=== PATIENT | female | born 1975 | race Caucasian/White ===

== ENCOUNTER → 2018-09-25 09:24 | Outpatient (CLI) | payer OTHER, SELFPAY ==
[2018-09-25 10:07] LABS: Add Manual Diff / Slide Review NO; Basophils Absolute Auto 100 /uL (0-100); Basophils Percent Auto 0.7 % (0-2); Eosinophils Absolute Auto 300 /uL (0-450); Eosinophils Percent Auto 3.7 % (2-4); Hematocrit 41.3 % (36-46); Hemoglobin 13.4 g/dL (12.0-16.0); Lymphocytes Absolute Auto 1900 /uL (1100-4500); Lymphocytes Percent Auto 25.3 % (25-40); Mean Corpuscular HGB Conc 32.6 % (30-36); Mean Corpuscular Hemoglobin 29.7 PG (26-34); Mean Corpuscular Volume 91.4 fL (80-100); Monocytes Absolute Auto 900 /uL (0-900); Monocytes Percent Auto 12.2 % (3-14); Neutrophils Absolute Auto 4300 /uL (1500-7000); Neutrophils Percent Auto 58.1 % (50-75); Platelet Count 368 X10^3/uL (150-400); Red Blood Cell Count 4.52 X10^6/uL (4.0-5.2); Red Cell Distribution Width 14.9 % (11.6-14.8); White Blood Cell Count 7.5 X10^3/uL (4.5-11.0)
[2018-09-25 10:10] LABS: Glucose 70 mg/dL (70-100); Hemoglobin A1C% w Est Avg Glu 5.2 % (4.0-6.0)
[2018-09-25 10:50] LABS: Hepatitis B Surface Antigen NEGATIVE s/c (NEGATIVE); Rubella Antibody IgG 21.5 IU/mL (>15)
[2018-09-25 11:01] LABS: Appearance Urine UA CLEAR; Bilirubin Urine UA NEGATIVE (NEGATIVE); Color Urine UA YELLOW; Glucose Urine UA NEGATIVE (Negative); Ketones Urine UA NEGATIVE (NEGATIVE); Leukocyte Esterase Urine UA NEGATIVE (NEGATIVE); Nitrite Urine UA NEGATIVE (Negative); Occult Blood Urine UA NEGATIVE (Negative); Protein Urine UA NEGATIVE (Negative); Specific Gravity Urine UA 1.025 (1.000-1.035); Urobilinogen Urine UA 0.2 E.U./dL (0.2)
[2018-09-25 11:07] LABS: HIV 1 and 2 Antibody NEGATIVE (NEGATIVE); Hep C Virus Ab w/Reflex Quant NEGATIVE s/c (NEGATIVE)
[2018-09-25 13:02] LABS: Blood Urea Nitrogen 13 mg/dL (7-17); Creatine Kinase 53 U/L (30-135); Uric Acid 2.7 mg/dL (2.5-6.2)
[2018-09-27 12:26] LABS: RPR Screen Nonreactive (Nonreactive)
== END ==
PROVIDERS: Family Provider Family Medicine Geriatric Medicine; PCP Family Medicine Geriatric Medicine
DX: Z34.01 Encounter for supervision of normal first pregnancy, first trimester (principal); O16.9 Unspecified maternal hypertension, unspecified trimester
CPT/HCPCS: 36415; 80055; 81003; 82550; 82947; 83036; 84520; 84550; 86703; 86787; 86803; 86850; 86900; 86901; 87086

== ENCOUNTER → 2018-10-27 12:54 | Outpatient (CLI) | payer OTHER, SELFPAY ==
[2018-11-02 14:51] LABS: Sequential Screen 1st Trimeste FINAL RESULT PENDING
[2018-11-06 13:15] LABS: Informaseq SEE SEPERATE REPORT
== END ==
PROVIDERS: Family Provider Family Medicine Geriatric Medicine; PCP Family Medicine Geriatric Medicine
DX: O09.519 Supervision of elderly primigravida, unspecified trimester (principal); Z3A.13 13 weeks gestation of pregnancy
CPT/HCPCS: 36415; 81507; 84163; 84702

== ENCOUNTER → 2018-11-24 09:47 | Outpatient (CLI) | payer OTHER, SELFPAY ==
[2018-11-29 14:04] LABS: Sequential Screen 2nd Trimeste SCREEN NEGATIVE
== END ==
DX: O09.519 Supervision of elderly primigravida, unspecified trimester (principal)
CPT/HCPCS: 82105; 82677; 84163; 84702; 86336

== ENCOUNTER → 2019-03-29 10:46 | Outpatient (CLI) | payer OTHER, SELFPAY ==
[2019-03-29 11:16] LABS: Add Manual Diff / Slide Review NO; Basophils Absolute Auto 0 /uL (0-100); Basophils Percent Auto 0.4 % (0-2); Eosinophils Absolute Auto 200 /uL (0-450); Eosinophils Percent Auto 1.6 % (2-4); Lymphocytes Absolute Auto 2200 /uL (1100-4500); Lymphocytes Percent Auto 18.7 % (25-40); Mean Corpuscular HGB Conc 33.3 % (30-36); Mean Corpuscular Hemoglobin 30.7 PG (26-34); Mean Corpuscular Volume 92.4 fL (80-100); Monocytes Absolute Auto 1200 /uL (0-900); Monocytes Percent Auto 10.2 % (3-14); Neutrophils Absolute Auto 8200 /uL (1500-7000); Neutrophils Percent Auto 69.1 % (50-75); Platelet Count 295 X10^3/uL (150-400); Red Blood Cell Count 4.22 X10^6/uL (4.0-5.2); Red Cell Distribution Width 13.6 % (11.6-14.8); White Blood Cell Count 11.8 X10^3/uL (4.5-11.0)
[2019-03-29 11:37] LABS: Alanine Aminotransferase 25 IU/L (9-52); Aspartate Aminotransferase 20 IU/L (14-36); Blood Urea Nitrogen 9 mg/dL (7-17); Estimated Glomerular Filt Rate > 60.0 mL/min (>60); Uric Acid 3.2 mg/dL (2.5-6.2)
[2019-03-30 13:13] LABS: Strep Grp B PCR NEG for Grp B Strep
== END ==
PROVIDERS: PCP Family Medicine Geriatric Medicine
DX: O16.9 Unspecified maternal hypertension, unspecified trimester (principal); Z3A.35 35 weeks gestation of pregnancy
CPT/HCPCS: 36415; 82565; 84450; 84460; 84520; 84550; 85025; 87653

== ENCOUNTER 2019-04-12 11:04 | Outpatient (CLI) | payer OTHER, SELFPAY | END 2019-04-12 11:58 | disposition home or self-care (01) | LOC: LABOR 11:58 → OB 04-16 12:27 | PROVIDERS: PCP Family Medicine Geriatric Medicine | DX: O13.3 Gestational [pregnancy-induced] hypertension without significant proteinuria, third trimester (principal); Z3A.37 37 weeks gestation of pregnancy | CPT/HCPCS: 59025; G0378; G0379 ==

== ENCOUNTER → 2019-04-20 12:17 | Outpatient (CLI) | payer OTHER, SELFPAY ==
[2019-04-20 13:14] LABS: Add Manual Diff / Slide Review NO; Basophils Absolute Auto 0 /uL (0-100); Basophils Percent Auto 0.3 % (0-2); Eosinophils Absolute Auto 200 /uL (0-450); Eosinophils Percent Auto 1.8 % (2-4); Hematocrit 40.3 % (36-46); Hemoglobin 13.4 g/dL (12.0-16.0); Lymphocytes Absolute Auto 2000 /uL (1100-4500); Lymphocytes Percent Auto 20.4 % (25-40); Mean Corpuscular HGB Conc 33.2 % (30-36); Mean Corpuscular Hemoglobin 31.1 PG (26-34); Mean Corpuscular Volume 93.7 fL (80-100); Monocytes Absolute Auto 1000 /uL (0-900); Monocytes Percent Auto 10.4 % (3-14); Neutrophils Absolute Auto 6500 /uL (1500-7000); Neutrophils Percent Auto 67.1 % (50-75); Platelet Count 277 X10^3/uL (150-400); Red Cell Distribution Width 14.1 % (11.6-14.8); White Blood Cell Count 9.7 X10^3/uL (4.5-11.0)
[2019-04-20 13:27] LABS: Aspartate Aminotransferase 18 IU/L (14-36); Blood Urea Nitrogen 9 mg/dL (7-17); Estimated Glomerular Filt Rate > 60.0 mL/min (>60); Uric Acid 3.9 mg/dL (2.5-6.2)
== END ==
LOC: LAB 12:39 → OB 04-24 09:36
PROVIDERS: PCP Family Medicine Geriatric Medicine
DX: O13.3 Gestational [pregnancy-induced] hypertension without significant proteinuria, third trimester (principal); Z3A.38 38 weeks gestation of pregnancy
CPT/HCPCS: 36415; 59025; 84450; 84550; 85025; G0378

== ENCOUNTER 2019-04-26 10:57 | Outpatient (CLI) | payer OTHER, SELFPAY | END 2019-04-26 11:45 | disposition home or self-care (01) | LOC: LABOR 11:44 → OB 04-27 12:44 | PROVIDERS: PCP Family Medicine Geriatric Medicine | DX: O13.3 Gestational [pregnancy-induced] hypertension without significant proteinuria, third trimester (principal); Z3A.39 39 weeks gestation of pregnancy | CPT/HCPCS: 59025; G0378; G0379 ==

== ENCOUNTER 2019-05-01 17:50 | Observation (INO) | payer OTHER, SELFPAY ==
[2019-05-01] MEDS: LACTATED RINGERS 1,000 ML 100 ML IV (20:00)
[2019-05-01] MEDS: miSOPROStol 25 MCG TABLET VAG (20:08)
[2019-05-01 20:23] LABS: Add Manual Diff / Slide Review NO; Basophils Absolute Auto 100 /uL (0-100); Basophils Percent Auto 0.4 % (0-2); Eosinophils Absolute Auto 200 /uL (0-450); Eosinophils Percent Auto 1.6 % (2-4); Hematocrit 38.9 % (36-46); Hemoglobin 12.9 g/dL (12.0-16.0); Lymphocytes Absolute Auto 2900 /uL (1100-4500); Lymphocytes Percent Auto 21.9 % (25-40); Mean Corpuscular HGB Conc 33.2 % (30-36); Mean Corpuscular Hemoglobin 31.4 PG (26-34); Mean Corpuscular Volume 94.5 fL (80-100); Monocytes Absolute Auto 1600 /uL (0-900); Monocytes Percent Auto 11.8 % (3-14); Neutrophils Absolute Auto 8500 /uL (1500-7000); Neutrophils Percent Auto 64.3 % (50-75); Platelet Count 266 X10^3/uL (150-400); Red Blood Cell Count 4.12 X10^6/uL (4.0-5.2); Red Cell Distribution Width 14.4 % (11.6-14.8); White Blood Cell Count 13.2 X10^3/uL (4.5-11.0)
[2019-05-01 23:08] VITALS: BP 124/76
[2019-05-02] MEDS: miSOPROStol 25 MCG TABLET VAG (00:08)
[2019-05-02] MEDS: OXYTOCIN PREMIX 30 UNIT/500 ML PLAST..BAG IV (06:51)
--- NOTE | 2019-05-02 08:02 | DI.US.S_ITS ---
PROCEDURE: US OB LIMITED INDICATIONS: EFW; S/D RATIO; BPP OUTSIDE/PRIOR DATING DATA: Last menstrual period (LMP): 07/24/18. LMP-based estimated date of delivery (RONALD): 04/30/19. First dating scan (date and location): 09/25/18, Dr. Shea office. Estimated date of delivery (RONALD) from first dating scan: 04/28/19. TECHNIQUE: Real-time scanning was performed of the fetus, with image documentation and biometric measurements. Endovaginal scanning: Not performed COMPARISON: None. FINDINGS: General: A single living intrauterine gestation is present. Presentation: Vertex. Placenta: Placental position is posterior, without previa. Lower placental edge 2 cm or less from internal cervical os qualifies as low lying placenta. Amniotic fluid index: 7.3 cm cm, normal range is 5-24 cm. heart rate: 149 beats per minute. Maternal cervical canal: Not visualized. biometrics: Biparietal diameter: 9.5 cm, 38 weeks, 4 days Head circumference: 33.1 cm, 37 weeks 5 days Abdominal circumference: 34.4 cm, 38 weeks, 2 days Femur length: 7.8 cm, 40 weeks, one day Estimated gestational age from initial scan: 40 weeks, 4 days Composite gestational age from present scan: 38 weeks, 5 days Estimated weight and percentile: 3555 g, 37th percentile Measurement variability for biometric dating: +/- 7 days from 14 weeks to 15 weeks 6 days gestation, +/- 10 days from 16 weeks to 21 weeks 6 days gestation, +/- 2 weeks from 22 weeks to 27 weeks 6 days gestation, +/- 3 weeks for 28 weeks gestation or later. weight reference: 4500 g or EFW >90/95% is considered macrosomia or large for gestational age. EFW <10% is small for gestational age. EFW 5% or less is considered intra-uterine growth restriction. Other: Biophysical profile: Tone: 2 Movement: 2 Respiration: 2 Largest fluid pocket: 2 Umbilical artery S/D: 2.4 IMPRESSION: 1. Single live intrauterine gestation with a composite gestational age of 38 weeks, 5 days which is concordant with dates by initial scan. 2. Estimated weight in the 37th percentile. 3. 04/12 biophysical profile. 4. Umbilical artery S/D ratio within normal limits. Dictated by: Laura Wise M.D. on 05/02/2019 at 8:46 Approved by: Laura Wise M.D. on 05/02/2019 at 8:49
[2019-05-02 08:55] LABS: Add Manual Diff / Slide Review NO; Basophils Absolute Auto 100 /uL (0-100); Basophils Percent Auto 0.6 % (0-2); Eosinophils Absolute Auto 200 /uL (0-450); Eosinophils Percent Auto 1.8 % (2-4); Hematocrit 39.3 % (36-46); Hemoglobin 13.4 g/dL (12.0-16.0); Lymphocytes Absolute Auto 2200 /uL (1100-4500); Lymphocytes Percent Auto 20.2 % (25-40); Mean Corpuscular HGB Conc 34.1 % (30-36); Mean Corpuscular Hemoglobin 31.6 PG (26-34); Mean Corpuscular Volume 92.7 fL (80-100); Monocytes Absolute Auto 900 /uL (0-900); Monocytes Percent Auto 8.3 % (3-14); Neutrophils Absolute Auto 7600 /uL (1500-7000); Neutrophils Percent Auto 69.1 % (50-75); Platelet Count 265 X10^3/uL (150-400); Red Blood Cell Count 4.24 X10^6/uL (4.0-5.2); Red Cell Distribution Width 14.4 % (11.6-14.8)
[2019-05-02 09:05] LABS: Alanine Aminotransferase 15 IU/L (9-52); Albumin 3.3 g/dL (3.5-5.0); Alkaline Phosphatase 122 U/L (38-126); Aspartate Aminotransferase 22 IU/L (14-36); Bilirubin Total 0.5 mg/dL (0.2-1.3); Blood Urea Nitrogen 8 mg/dL (7-17); Calcium 8.9 mg/dL (8.4-10.2); Carbon Dioxide 22 mmol/L (22-32); Chloride 107 mmol/L (98-107); Estimated Glomerular Filt Rate > 60.0 mL/min (>60); Globulin 3.3 g/dL (1.7-4.1); Glucose 98 mg/dL (70-100); HEMOLYSIS < 15 (0-50); Potassium 3.8 mmol/L (3.4-5.1); Sodium 135 mmol/L (137-145); Total Protein 6.6 g/dL (6.3-8.2); Uric Acid 3.7 mg/dL (2.5-6.2)
[2019-05-02 11:07] LABS: Appearance Urine UA CLEAR; Bilirubin Urine UA NEGATIVE (NEGATIVE); Color Urine UA YELLOW; Glucose Urine UA NEGATIVE (Negative); Ketones Urine UA NEGATIVE (NEGATIVE); Leukocyte Esterase Urine UA NEGATIVE (NEGATIVE); Nitrite Urine UA NEGATIVE (Negative); Occult Blood Urine UA NEGATIVE (Negative); Protein Urine UA NEGATIVE (Negative); Urobilinogen Urine UA 0.2 E.U./dL (0.2); pH Urine UA 7.5 (4.5-8.0)
--- NOTE | 2019-05-02 11:41 | P.TNLD_ITS ---
Visit Information Visit Information Date of evaluation: 05/02/19 Primary OB Provider: Kishor Shea On-call OB Provider: Kishor Shea Reason for Evaluation: Yes non-stress test and Yes other Comments/Additional reasons for admission: Pt with chronic hypertension followed throughout the on increasing doses of labetalol. Superimposed preeclampsia was tested for throughout the . Her urine proteins always remained negative. Her preeclampsia screens were negative. The patient was at term and was admitted for induction on the basis of her chronic hypertension. Misoprostol was given. There was however no cervical change. The patient was then re-evaluated. Her blood pressures were normotensive. Her urine proteins were negative. Preeclampsia labs were drawn and were entirely normal. Ultrasound analysis was obtained. The baby was at the 37th percentile. Biophysical profile was 04/12. Doppler ST was 2.4-1. Monitor tracing during the evening and day were reactive. [facility] Family History (Updated 05/15/15 @ 00:00 by Conversion Provider) Father Age: 68 Hypertension High cholesterol Mental health problem Anxiety and depression Grandfather Hypertension High cholesterol Stroke Mother Age: 65 Hypertension High cholesterol Grandmother Heart disease Hypertension High cholesterol Sister Age: 39 Mental health problem Anxiety Social History Smoking Status: Never smoker Family History (Updated 05/15/15 @ 00:00 by Conversion Provider) Father Age: 68 Hypertension High cholesterol Mental health problem Anxiety and depression Grandfather Hypertension High cholesterol Stroke Mother Age: 65 Hypertension High cholesterol Grandmother Heart disease Hypertension High cholesterol Sister Age: 39 Mental health problem Anxiety Social History Smoking Status: Never smoker Exam Narrative Exam Narrative: Fundus is 38 cm Vertex presentation Estimated weight 3500 g Cervix still long soft closed and posterior Objective Labs Result Diagrams: 05/02/19 08:38 05/02/19 08:38 Labs: Laboratory Results - last 24 hr 05/01/19 05/01/19 05/02/19 20:00 20:00 08:38 WBC 13.2 H 11.0 RBC 4.12 4.24 Hgb 12.9 13.4 Hct 38.9 39.3 MCV 94.5 92.7 MCH 31.4 31.6 MCHC 33.2 34.1 RDW 14.4 14.4 Plt Count 266 265 Neut % (Auto) 64.3 69.1 Lymph % (Auto) 21.9 L 20.2 L [place] % (Auto) 11.8 8.3 Eos % (Auto) 1.6 L 1.8 L Baso % (Auto) 0.4 0.6 Neut # (Auto) 8500 H 7600 H Lymph # (Auto) 2900 2200 [place] # (Auto) 1600 H 900 Eos # (Auto) 200 200 Baso # (Auto) 100 100 Sodium Potassium Chloride Carbon Dioxide BUN Creatinine Estimated GFR BUN/Creatinine Ratio Glucose Uric Acid Calcium Total Bilirubin AST ALT Alkaline Phosphatase Total Protein Albumin Globulin Albumin/Globulin Ratio Urine Color Urine Appearance Urine pH Ur Specific [place] Urine Protein Urine Glucose (UA) Urine Ketones Urine Occult Blood Urine Nitrate Urine Bilirubin Urine Urobilinogen Ur Leukocyte Esterase Blood Type A Positive Antibody Screen Negative 05/02/19 05/02/19 08:38 10:58 WBC RBC Hgb Hct MCV MCH MCHC RDW Plt Count Neut % (Auto) Lymph % (Auto) [place] % (Auto) Eos % (Auto) Baso % (Auto) Neut # (Auto) Lymph # (Auto) [place] # (Auto) Eos # (Auto) Baso # (Auto) Sodium 135 L Potassium 3.8 Chloride 107 Carbon Dioxide 22 BUN 8 Creatinine 0.50 L Estimated GFR > 60.0 BUN/Creatinine Ratio 16.0 Glucose 98 Uric Acid 3.7 Calcium 8.9 Total Bilirubin 0.5 AST 22 ALT 15 Alkaline Phosphatase 122 Total Protein 6.6 Albumin 3.3 L Globulin 3.3 Albumin/Globulin Ratio 1.0 Urine Color Yellow Urine Appearance Clear Urine pH 7.5 Ur Specific [place] 1.010 Urine Protein Negative Urine Glucose (UA) Negative Urine Ketones Negative Urine Occult Blood Negative Urine Nitrate Negative Urine Bilirubin Negative Urine Urobilinogen 0.2 Ur Leukocyte Esterase Negative Blood Type Antibody Screen Evaluation Evaluation Laboratory results: Laboratory Tests 05/01/19 05/01/19 05/02/19 20:00 20:00 08:38 WBC 13.2 H 11.0 RBC 4.12 4.24 Hgb 12.9 13.4 Hct 38.9 39.3 MCV 94.5 92.7 MCH 31.4 31.6 MCHC 33.2 34.1 RDW 14.4 14.4 Plt Count 266 265 Neut % (Auto) 64.3 69.1 Lymph % (Auto) 21.9 L 20.2 L [place] % (Auto) 11.8 8.3 Eos % (Auto) 1.6 L 1.8 L Baso % (Auto) 0.4 0.6 Neut # (Auto) 8500 H 7600 H Lymph # (Auto) 2900 2200 [place] # (Auto) 1600 H 900 Eos # (Auto) 200 200 Baso # (Auto) 100 100 Sodium Potassium Chloride Carbon Dioxide BUN Creatinine Estimated GFR BUN/Creatinine Ratio Glucose Uric Acid Calcium Total Bilirubin AST ALT Alkaline Phosphatase Total Protein Albumin Globulin Albumin/Globulin Ratio Urine Color Urine Appearance Urine pH Ur Specific [place] Urine Protein Urine Glucose (UA) Urine Ketones Urine Occult Blood Urine Nitrate Urine Bilirubin Urine Urobilinogen Ur Leukocyte Esterase Blood Type A Positive Antibody Screen Negative 05/02/19 05/02/19 08:38 10:58 WBC RBC Hgb Hct MCV MCH MCHC RDW Plt Count Neut % (Auto) Lymph % (Auto) [place] % (Auto) Eos % (Auto) Baso % (Auto) Neut # (Auto) Lymph # (Auto) [place] # (Auto) Eos # (Auto) Baso # (Auto) Sodium 135 L Potassium 3.8 Chloride 107 Carbon Dioxide 22 BUN 8 Creatinine 0.50 L Estimated GFR > 60.0 BUN/Creatinine Ratio 16.0 Glucose 98 Uric Acid 3.7 Calcium 8.9 Total Bilirubin 0.5 AST 22 ALT 15 Alkaline Phosphatase 122 Total Protein 6.6 Albumin 3.3 L Globulin 3.3 Albumin/Globulin Ratio 1.0 Urine Color Yellow Urine Appearance Clear Urine pH 7.5 Ur Specific [place] 1.010 Urine Protein Negative Urine Glucose (UA) Negative Urine Ketones Negative Urine Occult Blood Negative Urine Nitrate Negative Urine Bilirubin Negative Urine Urobilinogen 0.2 Ur Leukocyte Esterase Negative Blood Type Antibody Screen Diagnosis, Plan/Disposition Plan/Disposition Plan: Patient at term with chronic hypertension but no superimposed preeclampsia Biophysical profile 06/14 All laboratory studies totally within normal limits Continues with unfavorable cervix despite three misoprostol tablets over a 12 hour. Plan is for repeat NST on Tuesday and planned induction next Tuesday OB Disposition: home
== END 2019-05-02 12:10 | disposition home or self-care (01) ==
PROVIDERS: PCP Family Medicine Geriatric Medicine
DX: O10.913 Unspecified pre-existing hypertension complicating pregnancy, third trimester (principal)
CPT/HCPCS: 36415; 59025; 59050; 59200; 76815; 76819; 80053; 81003; 84550; 85025; 86850; 86900; 86901; 96360; G0378; G0379; J2590

== ENCOUNTER 2019-05-04 10:16 | Outpatient (CLI) | payer OTHER, SELFPAY ==
--- NOTE | 2019-05-04 12:55 | PM.OBTRLD ---
Visit Information Visit Information Date of evaluation: 05/04/19 Primary OB Provider: Kishor Shea On-call OB Provider: Umm Locke Reason for Evaluation: Yes non-stress test non-stress test reason: hypertension/pre-eclampsia Vital Signs Vital Signs: Blood pressure 126/81, pulse 78, temperature 97.5? [facility] Medical History (Updated 05/04/19 @ 12:57 by Umm Locek MD) Hypertension affecting in third trimester (Acute) Family History (Updated 05/15/15 @ 00:00 by Conversion Provider) Father Age: 68 Hypertension High cholesterol Mental health problem Anxiety and depression Grandfather Hypertension High cholesterol Stroke Mother Age: 65 Hypertension High cholesterol Grandmother Heart disease Hypertension High cholesterol Sister Age: 39 Mental health problem Anxiety Social History Smoking Status: Never smoker Family History (Updated 05/15/15 @ 00:00 by Conversion Provider) Father Age: 68 Hypertension High cholesterol Mental health problem Anxiety and depression Grandfather Hypertension High cholesterol Stroke Mother Age: 65 Hypertension High cholesterol Grandmother Heart disease Hypertension High cholesterol Sister Age: 39 Mental health problem Anxiety Social History Smoking Status: Never smoker Evaluation Evaluation Baseline heart rate: 135 Variability: Moderate (11-25) monitor accelerations: Present monitor decelerations: Absent Contraction Frequency (minutes): 0 Category of Tracing: I Diagnosis, Plan/Disposition Final Diagnosis (1) Hypertension affecting in third trimester: Current Visit: No Status: Acute (2) 40 weeks gestation of : Current Visit: No Status: Acute Plan/Disposition Plan: Reactive nonstress test. Patient will return for induction in 5 days. OB Disposition: home
== END 2019-05-04 11:28 | disposition home or self-care (01) ==
LOC: LABOR 10:32 → OB 05-08 13:41
PROVIDERS: PCP Family Medicine Geriatric Medicine; Visit Provider Specialist
DX: O16.3 Unspecified maternal hypertension, third trimester (principal); Z3A.40 40 weeks gestation of pregnancy
CPT/HCPCS: 59025; G0378; G0379

== ENCOUNTER 2019-05-08 18:53 | Inpatient (IN) | payer OTHER, SELFPAY ==
[2019-05-08] MEDS: LACTATED RINGERS 1,000 ML 1000 ML IV (22:25)
[2019-05-08] MEDS: LACTATED RINGERS 1,000 ML 42 ML IV (22:25)
[2019-05-08 22:56] LABS: Add Manual Diff / Slide Review NO; Basophils Absolute Auto 100 /uL (0-100); Basophils Percent Auto 0.5 % (0-2); Eosinophils Absolute Auto 200 /uL (0-450); Eosinophils Percent Auto 1.6 % (2-4); Hematocrit 37.3 % (36-46); Hemoglobin 12.4 g/dL (12.0-16.0); Lymphocytes Absolute Auto 2400 /uL (1100-4500); Lymphocytes Percent Auto 21.2 % (25-40); Mean Corpuscular HGB Conc 33.3 % (30-36); Mean Corpuscular Hemoglobin 31.3 PG (26-34); Mean Corpuscular Volume 93.8 fL (80-100); Monocytes Absolute Auto 1100 /uL (0-900); Monocytes Percent Auto 9.9 % (3-14); Neutrophils Absolute Auto 7500 /uL (1500-7000); Neutrophils Percent Auto 66.8 % (50-75); Platelet Count 250 X10^3/uL (150-400); Red Blood Cell Count 3.97 X10^6/uL (4.0-5.2); Red Cell Distribution Width 14.7 % (11.6-14.8); White Blood Cell Count 11.3 X10^3/uL (4.5-11.0)
--- NOTE | 2019-05-08 23:06 | P.HPOB_ITS ---
OB HPI Date/Time Date of admission: 05/08/19 Date Patient Seen: 05/08/19 Time Patient Seen: 23:06 History of Present Condition Chief complaint: : 1 Para: 0 Estimated Date of Delivery: 04/30/19 Estimated Gestational Age (weeks): 41+1 Narrative: Lisette Guerra is a 43 year old female 1 para 0 at 41-,1/7 weeks gestation who presented for cervical ripening and induction of labor When the patient was placed on the monitor, the baby was having late decelerations and periods of minimal ghif-hl-cupq variability. A decision was made not to proceed with Cytotec cervical ripening. The baby continued to have decelerations that were late and prolonged. She had periods of minimal eybj-mf-gfmn variability. Indications Indication for induction OB: post dates Operative indications ( section): distress (Late and prolonged decelerations) History of Present care: good care, initiated at week # (9), number of visits (14) and pounds weight gain (26) Dating criteria: LMP confirmed by 1st trimester US Ultrasounds: normal 1st trimester US and normal mid trimester US Medical complications: cardiovascular (Chronic hypertension) Preadmission Labs Blood type: A (+) positive -: Antibody screen: negative, GBS status: negative, HBsAG: negative, HIV: negative, HSV 1: unknown, HSV 2: unknown and RPR/VDLR: negative -: Rubella: immune and Varicella: immune HCT: 37.3 HCAB: negative Cell-free DNA: Normal, AFP normal Urine: Negative 1 hr GTT: 137 Evaluation Evaluation Baseline heart rate: 135 Variability: Minimal (3-5) monitor accelerations: Present monitor decelerations: Late Contraction Frequency (minutes): 10 Uterine Contraction Intensity: Mild Category of Tracing: III Laboratory results: Laboratory Tests 05/08/19 22:45 WBC 11.3 H RBC 3.97 L Hgb 12.4 Hct 37.3 MCV 93.8 MCH 31.3 MCHC 33.3 RDW 14.7 Plt Count 250 Neut % (Auto) 66.8 Lymph % (Auto) 21.2 L [place] % (Auto) 9.9 Eos % (Auto) 1.6 L Baso % (Auto) 0.5 Neut # (Auto) 7500 H Lymph # (Auto) 2400 [place] # (Auto) 1100 H Eos # (Auto) 200 Baso # (Auto) 100 PFSH Medical History (Updated 05/04/19 @ 12:57 by Umm Locke MD) Hypertension affecting in third trimester (Acute) Family History (Updated 05/15/15 @ 00:00 by Conversion Provider) Father Age: 68 Hypertension High cholesterol Mental health problem Anxiety and depression Grandfather Hypertension High cholesterol Stroke Mother Age: 65 Hypertension High cholesterol Grandmother Heart disease Hypertension High cholesterol Sister Age: 39 Mental health problem Anxiety Social History Smoking Status: Never smoker Family History (Updated 05/15/15 @ 00:00 by Conversion Provider) Father Age: 68 Hypertension High cholesterol Mental health problem Anxiety and depression Grandfather Hypertension High cholesterol Stroke Mother Age: 65 Hypertension High cholesterol Grandmother Heart disease Hypertension High cholesterol Sister Age: 39 Mental health problem Anxiety Social History Smoking Status: Never smoker Meds Home Medications and Allergies Home Medications Medication Instructions Recorded Confirmed Type acetaminophen 325 mg capsule 325 mg PO Q6H PRN 09/25/18 04/06/19 History fluticasone 500 mcg-salmeterol 50 1 inhalation INHALATION Q12H 09/25/18 04/06/19 History mcg/dose blistr powdr for inhalation prenat.vits,gordon,xde-euyk-uvxmx 1 tab PO DAILY 09/25/18 04/06/19 History labetalol 200 mg tablet 200 mg PO TID #90 tab 04/23/19 Rx Allergies Allergy/AdvReac Type Severity Reaction Status Date / Time bertholletia excelsa ([place] Allergy Severe Anaphylaxis Verified 05/08/19 23:04 nut) cashew nut Allergy Severe Anaphylaxis Verified 05/08/19 23:04 pistachio nut Allergy Severe Anaphylaxis Verified 05/08/19 23:04 Penicillins [PENICILLINS] Allergy Mild INFLAMMED Verified 05/08/19 23:04 TASTE BUDS Exam Vital Signs (past 8 hours): Generally: Patient lying on her right side with oxygen on, anxious Lungs: Clear to auscultation bilaterally Cardiovascular: Regular rate and rhythm Fundal height: 42 cm Estimated weight: 8 lb Extremities: 1+ edema, negative Homans Objective Labs Result Diagrams: 05/08/19 22:45 Labs: Laboratory Results - last 24 hr 05/08/19 22:45 WBC 11.3 H RBC 3.97 L Hgb 12.4 Hct 37.3 MCV 93.8 MCH 31.3 MCHC 33.3 RDW 14.7 Plt Count 250 Neut % (Auto) 66.8 Lymph % (Auto) 21.2 L [place] % (Auto) 9.9 Eos % (Auto) 1.6 L Baso % (Auto) 0.5 Neut # (Auto) 7500 H Lymph # (Auto) 2400 [place] # (Auto) 1100 H Eos # (Auto) 200 Baso # (Auto) 100 Assessment and Plan Assessment and Plan Assessment and Plan narrative: Assessment: 43-year-old 1 para 0 at 41-,1/7 weeks gestation with chronic hypertension who presented for cervical ripening Nonreassuring heart rate tracing Plan: Primary low-transverse section Pediatrics notified The risks, benefits, and alternatives to the procedure were explained to the patient. The risks including bleeding, infection, injury to the bowel, bladder, or ureters. She understands these risks and agrees to proceed. A full par Q was held and consent form was signed. Time Spent with Patient Total time spent with greater than 50% in coordination of care (as documented) at patient's floor/unit and/or counseling patient:: 15-24 minutes
[2019-05-08] MEDS: CITRIC ACID/SODIUM CITRATE 15 ML SOLUTION 30 ML PO (23:29)
[2019-05-08] MEDS: CEFAZOLIN 2 GM/100 ML FROZ.PIGGY IV (23:48)
[2019-05-09] VITALS (8 sets, daily range): BP systolic 107–144; BP diastolic 61–91; PULSE 60–70; RESP 10–12; TEMP 37.2; O2SAT 97–99
--- NOTE | 2019-05-09 00:05 | SUR.OPER ---
Supine on Padded OR bed, head on pillow, safety belt at thigh, arms secured on padded arm boards at <90 degrees abduction. Bump under right buttock. Legs uncrossed with pillow under knees, gel pad to heels, tape over blanket to lower legs.
[2019-05-09] MEDS: ACETAMINOPHEN IV 1,000 MG/100 ML VIAL 400 MG IV (00:29)
[2019-05-09] MEDS: LACTATED RINGERS 1,000 ML 100 ML IV ×3 (00:37→17:02)
[2019-05-09 00:43] LABS: Base Excess Cord Arterial Bld -1 (-9.0-2.2); CO2 Cord Arterial Blood 66.6 (40-71); HCO3 Cord Arterial Blood 26.7 (17-27); Oxygen Sat Cord Arterial Blood 7 (5-59); PO2 Cord Arterial Blood 10 (6-30); pH Cord Arterial Blood 7.21 (7.14-7.38)
[2019-05-09 00:44] LABS: Cord Venous Blood PO2 19 (17-41); Cord Venous Blood pH 7.302 (7.25-7.45); HCO3 Cord Venous Blood 22.7 (12-28); O2 Saturation Cord Venous Bld 24 (14-75)
--- NOTE | 2019-05-09 00:46 | PM.PREOP ---
Pre-operative Note Interval Note History & Physical reviewed/Exam performed by Physician: Yes Changes to H&P: No
--- NOTE | 2019-05-09 00:46 | PM.GYNOP.1 ---
Operative Date/Time/Diagnoses Date of procedure: 05/09/19 Time of procedure: 00:46 Pre-op diagnosis: 41+1 weeks gestation Chronic hypertension Non-reassuring FHR tracing Post-op diagnosis: same Procedure & Clinicians Procedure: Procedures Operation Date: 05/08/19 23:15 Actual Procedures Side Surgeon p Section Ana Aldridge MD Indications: 41 and 1/7 weeks gestation Chronic hypertension Nonreassuring heart rate tracing Surgeon: Ana Aldridge Anesthesia Type: Spinal (With Duramorph) Operative Notes Findings: Live female infant in the LOT presentation Thick meconium-stained amniotic fluid Normal uterus, tubes, and ovaries Closure Type: primary Specimen(s): other (Placenta, cord bloods, cord pH) Applied: catheter Estimated blood loss (mL): 700 Blood products transfused: none Procedure in detail: The patient was taken to the operating room where she was placed in the seated position. Spinal anesthesia was administered. She was then placed in the dorsal supine position with a leftward tilt. She was prepped and draped in the usual sterile fashion. A timeout was performed. After spinal analgesia was found to be adequate, a Pfannenstiel skin incision was made 2 fingerbreadths above the pubic symphysis and carried through to the underlying layer fascia. The fascia was nicked in the midline, and the incision extended bilaterally with the Ramirez scissors. The superior aspect of the fascial incision was grasped with a [place] clamps, elevated, and the underlying rectus muscles dissected off sharply and bluntly. Attention was then turned to the inferior aspect of this incision which in a similar fashion was grasped with a [place] clamps, elevated, and the underlying rectus muscles dissected off sharply and bluntly. The rectus muscles were in the midline. The peritoneum was identified, grasped between 2 hemostats, and entered sharply with the Metzenbaum scissors. This incision was extended superiorly and inferiorly with good visualization of the bladder. The bladder blade was inserted. The vesicouterine peritoneum was identified, grasped with the pickup, and entered sharply with the Metzenbaum scissors. This incision was extended bilaterally, and the bladder flap was created digitally. The bladder blade was reinserted. The lower uterine segment was incised in a transverse fashion with the scalpel. Upon entering the amniotic sac there was a moderate amount of thick meconium-stained amniotic fluid. The infant's head was delivered with vacuum assistance. The nose and mouth were suctioned with bulb suction. The remainder of the body delivered without difficulty. The cord was double clamped and cut. The was handed off to waiting RN and RT. Cord bloods were obtained. A piece of cord for cord pH was obtained. The placenta was delivered manually. The uterus was cleared of all clots and debris. The uterine incision was repaired with #1 chromic in a running interlocking fashion, and a second layer the same suture was used for an imbricating layer. Hemostasis was achieved. The tubes and ovaries were examined and were found to be normal. The gutters were cleared of all clots and debris. The bladder flap was reapproximated using 2-0 Vicryl in a running fashion. The parietal peritoneum was closed using 2-0 Vicryl in a running fashion. The fascia was reapproximated using 0 Vicryl in a running fashion. Subcutaneous layer was copiously irrigated with warm normal saline. 5 simple interrupted sutures of 3-0 Vicryl were placed to reapproximate the subcutaneous layer. The skin was closed with 4-0 Biosyn in a subcuticular fashion. Steri-Strips were placed. An Aquacel dressing was placed. The uterus was expressed of a small amount of old blood. Sponge, lap, and instrument counts were correct x-2. The patient tolerated the procedure well, and was taken to PACU in stable condition. Complications: none Post-operative Condition: stable Disposition: PACU Plan for aftercare: To the center after recovery
--- NOTE | 2019-05-09 00:47 | SUR.OPER ---
viable baby baby girl born at 0008, placenta delivered at 0009, cord blood and placenta sent with OBRN
[2019-05-09] MEDS: KETOROLAC 30 MG/ML VIAL IV ×4 (01:03→20:30)
[2019-05-09] MEDS: NALBUPHINE 20 MG/ML AMPUL 5 MG IV (03:26)
[2019-05-09] MEDS: OXYCODONE IR 10 MG TABLET PO ×2 (04:50→04:51)
[2019-05-09] MEDS: ONDANSETRON 4 MG/2 ML INJ IV ×2 (05:07→13:40)
[2019-05-09] MEDS: METOCLOPRAMIDE 10 MG/2 ML INJ IV ×2 (05:07→14:52)
[2019-05-09] MEDS: LABETALOL 100 MG TABLET 200 MG PO ×3 (08:29→20:30)
[2019-05-09] MEDS: OXYCODONE/ACETAMINOPHEN 5/325 TABLET 2 TAB PO ×3 (08:29→17:02)
[2019-05-09] MEDS: DOCUSATE 250 MG CAPSULE PO (08:29)
--- NOTE | 2019-05-09 17:53 | P.PNOB_ITS ---
Subjective - OB Subjective Patient comments: no complaints, pain well controlled and tolerating diet baby status: doing well and nursing well feeding status: exclusively breast feeding Date Patient Seen: 05/09/19 Time Patient Seen: 17:53 Exam Vital Signs (past 8 hours): - 05/09/19 14:52 Blood Pressure 132/79 Oxygen Delivery Method Room Air Narrative Exam Narrative: Generally: Patient is sitting up in bed, nursing , no acute distress Lungs: Clear to auscultation bilaterally Cardiovascular: Regular rate and rhythm Fundus: Firm at U -1 Incision: Clean dry and intact with Aquacel dressing Extremities: 1+ edema, negative Homans Objective Labs Result Diagrams: 05/08/19 22:45 Labs: Laboratory Results - last 24 hr 05/08/19 05/08/19 05/09/19 22:45 22:45 00:23 WBC 11.3 H RBC 3.97 L Hgb 12.4 Hct 37.3 MCV 93.8 MCH 31.3 MCHC 33.3 RDW 14.7 Plt Count 250 Neut % (Auto) 66.8 Lymph % (Auto) 21.2 L [place] % (Auto) 9.9 Eos % (Auto) 1.6 L Baso % (Auto) 0.5 Neut # (Auto) 7500 H Lymph # (Auto) 2400 [place] # (Auto) 1100 H Eos # (Auto) 200 Baso # (Auto) 100 Cord ABG pH Cord ABG pCO2 Cord ABG pO2 Cord ABG HCO3 Cord ABG Base Excess Cord ABG O2 Sat Cord VBG pH 7.302 Cord VBG pCO2 46.0 Cord VBG pO2 19 Cord VBG HCO3 22.7 Cord VBG Base Excess -4.00 Cord VBG O2 Sat 24 Blood Type A Positive Antibody Screen Negative 05/09/19 00:27 WBC RBC Hgb Hct MCV MCH MCHC RDW Plt Count Neut % (Auto) Lymph % (Auto) [place] % (Auto) Eos % (Auto) Baso % (Auto) Neut # (Auto) Lymph # (Auto) [place] # (Auto) Eos # (Auto) Baso # (Auto) Cord ABG pH 7.21 Cord ABG pCO2 66.6 Cord ABG pO2 10 Cord ABG HCO3 26.7 Cord ABG Base Excess -1 Cord ABG O2 Sat 7 Cord VBG pH Cord VBG pCO2 Cord VBG pO2 Cord VBG HCO3 Cord VBG Base Excess Cord VBG O2 Sat Blood Type Antibody Screen Assessment & Plan Plan day: 1 plan OB: routine postop care Time Spent With Patient Time: Total time spent is greater than 50% in coordination of care (as documented) at patient's floor/unit and/or counseling patient: Time with patient: 15-24 minutes
[2019-05-09] MEDS: ACETAMINOPHEN 325 MG TABLET 650 MG PO (22:23)
[2019-05-09] MEDS: OXYCODONE IR 5 MG TABLET PO (22:24)
[2019-05-10] MEDS: IBUPROFEN 600 MG TABLET PO ×3 (01:01→16:34)
[2019-05-10] MEDS: OXYCODONE/ACETAMINOPHEN 5/325 TABLET 2 TAB PO (04:50)
[2019-05-10 06:11] LABS: Hematocrit 31.7 % (36-46); Hemoglobin 10.5 g/dL (12.0-16.0)
[2019-05-10] MEDS: DOCUSATE 250 MG CAPSULE PO (09:03)
[2019-05-10 09:04] VITALS: BP 142/84; PULSE 93
[2019-05-10] MEDS: LABETALOL 100 MG TABLET 200 MG PO (09:04)
[2019-05-10] MEDS: PRENATAL VIT,CALC/IRON/FOLIC 1 TABLET 1 TAB PO (09:07)
--- NOTE | 2019-05-10 10:08 | P.PNOB_ITS ---
Subjective - OB Subjective Patient comments: no complaints [place] baby status: doing well feeding status: exclusively breast feeding Narrative: Post section doing well. Blood pressure is under control with labetalol. Patient ambulating well. Patient voiding a good volumes. Patient taking p.o. well lochia is light Date Patient Seen: 05/10/19 Time Patient Seen: 10:09 Interval history: As above patient is one and half days post section. She is doing well. Blood pressures are under good control to labetalol. She is taking p.o. well. Shah has been removed and she is voiding a good volumes. Lochia scant. Exam Vital Signs (past 8 hours): - 05/10/19 09:04 Pulse Rate 93 H Blood Pressure 142/84 H Oxygen Delivery Method Room Air Narrative Exam Narrative: Fundus is U minus two Incision covered with Aquacel dressing Lochia scant Objective Labs Result Diagrams: 05/10/19 05:05 Labs: Laboratory Results - last 24 hr 05/10/19 05:05 Hgb 10.5 L Hct 31.7 L Assessment & Plan Plan day: 2 plan OB: routine postop care Comments: Doing well No problems Make labetalol 200 b.i.d. Time Spent With Patient Time: Total time spent is greater than 50% in coordination of care (as documented) at patient's floor/unit and/or counseling patient: Time with patient: less than 15 minutes
[2019-05-10] MEDS: OXYCODONE IR 5 MG TABLET PO ×2 (11:30→20:19)
--- NOTE | 2019-05-10 16:03 | P.PNOB_ITS ---
Subjective - OB Subjective Patient comments: no complaints, pain well controlled, tolerating diet and flatus present baby status: doing well and nursing well [place] feeding status: exclusively breast feeding Date Patient Seen: 05/10/19 Time Patient Seen: 16:04 Exam Vital Signs (past 8 hours): - 05/10/19 09:04 Pulse Rate 93 H Blood Pressure 142/84 H Oxygen Delivery Method Room Air Narrative Exam Narrative: Generally: Patient is sitting up in bed, no acute distress Lungs: Clear to auscultation bilaterally Cardiovascular: Regular rate and rhythm Fundus: Firm at U -1 Incision: Clean dry and intact with Aquacel dressing Extremities: 1+ edema, negative Homans Objective Labs Result Diagrams: 05/10/19 05:05 Labs: Laboratory Results - last 24 hr 05/10/19 05:05 Hgb 10.5 L Hct 31.7 L Assessment & Plan Plan day: 2 plan OB: routine postop care Time Spent With Patient Time: Total time spent is greater than 50% in coordination of care (as documented) at patient's floor/unit and/or counseling patient: Time with patient: 15-24 minutes
[2019-05-10] MEDS: ACETAMINOPHEN 325 MG TABLET 650 MG PO (16:35)
[2019-05-11] MEDS: IBUPROFEN 600 MG TABLET PO ×2 (01:00→07:56)
[2019-05-11 01:01] VITALS: BP 152/84; PULSE 88
[2019-05-11] MEDS: OXYCODONE/ACETAMINOPHEN 5/325 TABLET 2 TAB PO (01:01)
[2019-05-11] MEDS: LABETALOL 100 MG TABLET 200 MG PO ×2 (01:01→09:01)
[2019-05-11] MEDS: LANOLIN OINT 7 GM 1 APPLIC TOP (01:16)
[2019-05-11] MEDS: ACETAMINOPHEN 325 MG TABLET 650 MG PO (07:57)
--- NOTE | 2019-05-11 08:05 | P.DS_ITS ---
Discharge Providers Provider Date of admission: 05/08/19 18:53 Discharge Date: 05/11/19 Primary care physician: Facundo Jo MD Consults: 05/09/19 01:40 Consult to Ambulatory Care Routine Comment: Discharge provider: Kishor Shea MD Summary Hospital Course Date Patient Seen: 05/11/19 Time Patient Seen: 08:06 Procedures: Epidural anesthesia Primary low segment section Hospital Course: The patient is a 43-year-old white female one now para one who presented for misoprostol cervical ripening for hypertension at 41 weeks. Patient was having contraction with some episodic decelerations compatible with cord compression. The patient is monitor strip was evaluated and felt that the prolonged decelerations were worrisome and the patient was taken to surgery and underwent a primary low segment section. Post delivery the patient did well. Blood pressures on labetalol remained normotensive. Shah was discontinued and she voided normally. She was taking p.o. well. She was ambulating well. She was discharged home for follow-up in one week for Aquacel dressing removed Peripartum Data Delivery Method: Emergency Section complications: none Status at Discharge Cognitive/behavioral status at discharge: oriented Functional status at discharge: independent ambulation Overall status at discharge: patient is progressing back to baseline Time Spent with Patient Time attestation: Total time spent providing and/or coordinating discharge services: Time spent: Less than 30 minutes Objective Labs Result Diagrams: 05/10/19 05:05 Exam Vital Signs (past 8 hours): - 05/11/19 01:01 Pulse Rate 88 Blood Pressure 152/84 H Oxygen Delivery Method Room Air Narrative Exam Narrative: Fundus U minus two Aquacel dressing intact Lochia scant Discharge Plan Discharge Plan Patient Disposition: Home Discharge Med Rec/Prescriptions Prescriptions: New fluticasone propion-salmeterol 500-50 mcg/dose Blister With Device 1 puff INH Q12H Qty: 1 RF: 0 ibuprofen 600 mg Tablet 600 mg PO Q6HR PRN (Reason: As Needed For Fever/Mild Pain) Qty: 16 RF: 0 labetalol 100 mg Tablet 200 mg PO BID Qty: 30 RF: 0 docusate sodium 250 mg Capsule 250 mg PO DAILY Qty: 10 RF: 0 Ccj-V-Alblmw Cream 1 applic topical PRN PRN (Reason: ) Qty: 1 RF: 0 oxycodone 10 mg Tablet 10 mg PO Q3HR PRN (Reason: Pain, Severe (7-10)) Qty: 10 RF: 0 Prenatabs Rx 29 mg iron- 1 mg Tablet 1 tab PO DAILY Qty: 60 RF: 0 Discontinued labetalol 200 mg tablet 200 mg PO TID Qty: 90 RF: 2 Hold Instructions: Pt to make diet modifications first. fluticasone propion-salmeterol [Advair Diskus] 500-50 mcg/dose blister with device 1 inhalation INHALATION Q12H RF: 0 prenat.vits,gordon,jtq-zjmc-phhiz tablet 1 tab PO DAILY RF: 0 acetaminophen [Tylenol] 325 mg capsule 325 mg PO Q6H PRN (Reason: Headache) RF: 0 Follow up/Referrals: Facundo Jo MD [Primary Care Provider] - Kishor Shea MD [Physician] - 05/17/19 Provider Discharge Instructions Diet: Diet as Tolerated Activity: Up ad nakita Skin/Wound/Dressing Care Report to your healthcare provider any signs of infection, such as:: chills, fever, increased pain, unusual drainage and unusual redness Dressing: Aquacel dressing to be removed in one week Discharge Data Primary Care Provider: Facundo Jo
[2019-05-11] MEDS: DOCUSATE 250 MG CAPSULE PO (09:01)
[2019-05-11] MEDS: PRENATAL VIT,CALC/IRON/FOLIC 1 TABLET 1 TAB PO (09:01)
== END 2019-05-11 10:45 | disposition home or self-care (01) | DRG 787 ==
PROVIDERS: Obstetrics & Gynecology; PCP Family Medicine Geriatric Medicine
PROC: (CPT 59514; principal; 2019-05-08 23:15)
DX: O48.0 Post-term pregnancy (principal); O10.02 Pre-existing essential hypertension complicating childbirth; O76 Abnormality in fetal heart rate and rhythm complicating labor and delivery; Z37.0 Single live birth; I10 Essential (primary) hypertension; Z3A.41 41 weeks gestation of pregnancy
CPT/HCPCS: 36415; 59050; 59510; 59514; 82803; 85014; 85018; 85025; 86850; 86900; 86901; G0379; J0131; J0690; J1885; J2274; J2300; J2405; J2590; J2765

== ENCOUNTER → 2019-05-17 12:02 | Outpatient (CLI) | payer OTHER, SELFPAY ==
[2019-05-17 12:21] LABS: Add Manual Diff / Slide Review NO; Basophils Absolute Auto 100 /uL (0-100); Basophils Percent Auto 0.8 % (0-2); Eosinophils Absolute Auto 400 /uL (0-450); Hematocrit 40.3 % (36-46); Hemoglobin 13.3 g/dL (12.0-16.0); Lymphocytes Absolute Auto 2500 /uL (1100-4500); Lymphocytes Percent Auto 27.7 % (25-40); Mean Corpuscular HGB Conc 32.9 % (30-36); Monocytes Absolute Auto 700 /uL (0-900); Monocytes Percent Auto 7.8 % (3-14); Neutrophils Absolute Auto 5300 /uL (1500-7000); Neutrophils Percent Auto 59.7 % (50-75); Platelet Count 443 X10^3/uL (150-400); Red Blood Cell Count 4.29 X10^6/uL (4.0-5.2); White Blood Cell Count 8.9 X10^3/uL (4.5-11.0)
[2019-05-17 12:54] LABS: Alanine Aminotransferase 39 IU/L (9-52); Aspartate Aminotransferase 28 IU/L (14-36); BUN Creatinine Ratio 27.1 (6-22); Blood Urea Nitrogen 19 mg/dL (7-17); Estimated Glomerular Filt Rate > 60.0 mL/min (>60); Uric Acid 4.8 mg/dL (2.5-6.2)
== END ==
PROVIDERS: PCP Family Medicine Geriatric Medicine
DX: O16.5 Unspecified maternal hypertension, complicating the puerperium (principal)
CPT/HCPCS: 36415; 82565; 84450; 84460; 84520; 84550; 85025

== ENCOUNTER → 2023-07-11 10:03 | Outpatient (CLI) | payer OTHER, SELFPAY ==
--- NOTE | 2023-07-11 10:05 | DI.RAD.S_ITS ---
PROCEDURE: XR LUMBAR SPINE MIN 4V INDICATIONS: BACK PAIN TECHNIQUE: 5 views of the lumbar spine were acquired, including bilateral oblique views. COMPARISON: None. FINDINGS: Bones: Vertebral body heights are well maintained. Slight straightening of normal lumbar lordosis. Left-sided oblique views obscured by bowel gas. Appearance of pars defects at L5-S1 may be due to gas lucency. Mild lower lumbar degenerative changes, with disc space height loss, facet arthropathy, and osteophytes. Soft tissues: No suspicious calcifications. Partially seen suspected hip arthrosis. IUD is present. IMPRESSION: Early degenerative changes seen in the lower lumbar spine. Consider MRI to further evaluate if clinically indicated. Dictated by: Sarwat Doll M.D. on 07/11/2023 at 14:46 Approved by: Sarwat Doll M.D. on 07/11/2023 at 14:49
== END ==
PROVIDERS: Referring Provider Anesthesiology; Visit Provider Anesthesiology
DX: M47.816 Spondylosis without myelopathy or radiculopathy, lumbar region (principal); M54.9 Dorsalgia, unspecified
CPT/HCPCS: 72110

== ENCOUNTER → 2023-07-19 10:57 | Outpatient (CLI) | payer OTHER, SELFPAY ==
--- NOTE | 2023-07-19 10:58 | DI.MRI.S_ITS ---
PROCEDURE: MR LUMBAR SPINE WO CON INDICATIONS: Lumbar radiculopathy, unequal reflexes TECHNIQUE: Noncontrast sagittal T1 spin echo and T2 fast echo, sagittal STIR, and T2 fast spin echo through the lumbar spine. In cases with scoliosis, additional coronal T2 fast spin echo may be performed. COMPARISON: [facility], CR, XR LUMBAR SPINE MIN 4V, 07/11/2023, 10:25. FINDINGS: Image quality: Excellent. Alignment and Curvature: There is normal bony alignment. Bone Marrow: Marrow is of normal overall signal. No acute vertebral body compression fractures. Spinal Cord: Conus medullaris terminates at the T12-L1 level. Visualized cord demonstrates normal signal and size. Paraspinous Soft Tissues: No paravertebral masses. T12-L1: Normal appearance. L1-L2: Normal appearance. L2-L3: Normal appearance. L3-L4: The disc height and disk signal are relatively well-preserved. Moderate disc bulge is seen, which is eccentric to the left. There is an extruded, sequestered disc fragment seen involving the left neural foramen region far laterally, as on series 5, image 22 and on series 3 image 14. There is moderate to severe left-sided neural foraminal narrowing, with a degree of compression upon the exiting left L3 nerve root. No significant right-sided neural foraminal narrowing is seen. Moderate central canal narrowing is seen. L4-L5: Moderate loss of disc height is seen. Loss of disc signal is seen. Moderate disc bulge is seen, with a central/right disc protrusion. There is a focal annular fissure seen posteriorly. There is mild right-sided and [id number] left-sided facet hypertrophy. There is moderate right-sided and at least moderate left-sided neural foraminal narrowing. There is a degree of compression seen upon the exiting left L4 nerve root. Moderate central canal narrowing is seen. L5-S1: The disc height and disk signal are relatively well-preserved. Mild to moderate disc bulge is seen, which is eccentric to the right. There is a focal annular fissure seen posteriorly. Mild to moderate facet hypertrophy is seen. Moderate bilateral neural foraminal narrowing can be seen, right worse than left. Mild central canal narrowing is seen. IMPRESSION: At the L3-L4 level, there is a sequestered disc fragment seen within the far lateral left neural foraminal region, with moderate to severe neural foraminal narrowing and compression upon the exiting left L3 nerve root. Milder degenerative changes are seen elsewhere within the lower lumbar spine. Dictated by: Maycol Becker M.D. on 07/19/2023 at 14:34 Approved by: Maycol Becker M.D. on 07/19/2023 at 14:40
== END ==
PROVIDERS: Referring Provider Anesthesiology; Visit Provider Anesthesiology
DX: M47.26 Other spondylosis with radiculopathy, lumbar region (principal); M54.9 Dorsalgia, unspecified
CPT/HCPCS: 72148

== ENCOUNTER → 2024-07-10 07:50 | Outpatient (CLI) | payer OTHER, SELFPAY ==
[2024-07-10 08:46] LABS: Hemoglobin A1C% w Est Avg Glu 5.6 % (4.0-6.0)
[2024-07-10 09:13] LABS: Follicle Stimulating Hormone 19.3 mIU/mL
[2024-07-10 09:16] LABS: Free T4, Direct Thyroxine 1.11 ng/dL (0.78-2.19)
[2024-07-10 09:29] LABS: Estradiol, Total 73.6 pg/mL
[2024-07-10 09:30] LABS: Thyroid Stimulating Hormone 1.65 uIU/mL (0.47-4.68)
== END ==
LOC: LAB 07:56
DX: R23.2 Flushing (principal); R63.5 Abnormal weight gain
CPT/HCPCS: 36415; 82670; 83001; 83036; 84439; 84443

== ENCOUNTER → 2024-12-17 07:38 | Outpatient (CLI) | payer OTHER, SELFPAY ==
--- NOTE | 2024-12-17 07:59 | DI.MRI.S_ITS ---
PROCEDURE: MR LUMBAR SPINE WO CON INDICATIONS: LUMBAR RADICULOPATHY TECHNIQUE: Noncontrast sagittal T1 spin echo and T2 fast echo, sagittal STIR, and T2 fast spin echo through the lumbar spine. In cases with scoliosis, additional coronal T2 fast spin echo may be performed. COMPARISON: [facility], MR, MR LUMBAR SPINE WO CON, 07/19/2023, 11:40. FINDINGS: Image quality: Excellent. Alignment and Curvature: There is normal bony alignment. Bone Marrow: Marrow is of normal overall signal. No acute vertebral body compression fractures. Spinal Cord: Conus medullaris terminates at the T12-L1 level. Visualized cord demonstrates normal signal and size. Paraspinous Soft Tissues: No paravertebral masses. T12-L1: Normal appearance. L1-L2: Normal appearance. L2-L3: Normal appearance. L3-L4: Resolution of previous far left foraminal free disc fragment. Disc bulge. Facet hypertrophy. Short pedicles. Mild canal stenosis, slightly increased from previous. L4-L5: Slight interval increase in disc height loss. Short pedicles. Facet hypertrophy. Progression of previous process with moderate broad-based right paracentral disc protrusion with a moderate central canal stenosis and impingement on the right L5 nerve root in the right lateral recess. Reference axial image 25 of series 5. L5-S1: Unchanged. Annulus tear and minimal disc bulge abutting the right S1 nerve root in the right lateral recess. Facet hypertrophy. No canal stenosis or significant foraminal stenosis. IMPRESSION: 1. 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 2. Resolution of a free disc fragment in the far left lateral aspect of the left L3-L4 foramen. 3. Progression at L4-L5. There is now moderate broad-based right paracentral disc protrusion resulting in moderate canal stenosis and impingement on the right L5 nerve root in the right lateral recess. 4. Annulus tear plus minimal disc bulge abutting the right S1 nerve root in the right lateral recess at L5-S1, unchanged. Dictated by: Satish Amato M.D. on 12/17/2024 at 8:32 Approved by: Satish Amato M.D. on 12/17/2024 at 8:38
== END ==
LOC: MRI 07:39
PROVIDERS: Referring Provider Neurological Surgery; Visit Provider Neurological Surgery
DX: M47.26 Other spondylosis with radiculopathy, lumbar region (principal); M47.27 Other spondylosis with radiculopathy, lumbosacral region; M51.16 Intervertebral disc disorders with radiculopathy, lumbar region; M48.061 Spinal stenosis, lumbar region without neurogenic claudication
CPT/HCPCS: 72148